=== PATIENT | male | born 1990 | race African-American/Black ===

== ENCOUNTER 2018-10-24 19:22 | Emergency (ER) | payer MEDICAID ==
[~2018-10-24] VITALS: Ht 175.3 cm; Wt 63.5 kg
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
[2018-10-25 02:34] VITALS: BP 122/80
[2018-10-25 02:54] LABS: BASOPHILS % (AUTO) 0.5 % (0.0-2.0); EOSINOPHILS % (AUTO) 2.2 % (0.0-6.0); HEMATOCRIT 39 % (39-51); HEMOGLOBIN 12.5 g/dL (13.5-17.5); LYMPHOCYTES % (AUTO) 27.9 % (20.0-44.0); MEAN CORPUSCULAR HGB CONC 32 g/dl (31.0-36.0); MEAN CORPUSCULAR VOLUME 90 fL (80-96); MONOCYTES # (AUTO) 0.5 /CMM (0.1-1.30); MONOCYTES % (AUTO) 7.8 % (2.0-12.0); NEUTROPHILS # (AUTO) 4.3 /CMM (1.8-8.9); NEUTROPHILS % (AUTO) 61.6 % (43.0-81.0); PLATELET COUNT (AUTO) 294 /CMM (150-450); RED BLOOD CELL COUNT(AUTO) 4.28 MIL/uL (4.5-6.0); WHITE BLOOD COUNT (AUTO) 7.1 K/uL (4.3-11.0)
[2018-10-25 03:06] LABS: CALCIUM, SERUM 9.3 mg/dL (8.5-10.1); CREATININE 0.9 mg/dL (0.6-1.3); POTASSIUM 4.1 mmol/L (3.5-5.1)
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
== END 2018-10-25 06:09 | disposition home or self-care (01) ==
LOC: ER 19:25
DX: S32.89XA Fracture of other parts of pelvis, initial encounter for closed fracture (principal); F10.10 Alcohol abuse, uncomplicated; Y90.9 Presence of alcohol in blood, level not specified; Z59.0 Homelessness; W18.39XA Other fall on same level, initial encounter; Y93.01 Activity, walking, marching and hiking; Y92.410 Unspecified street and highway as the place of occurrence of the external cause; Y99.8 Other external cause status
CPT/HCPCS: 36415; 71045; 72192; 73502; 80048; 85025; 93005; 99284; A4606

== ENCOUNTER 2020-11-03 20:37 | Emergency (ER) | payer MEDICAID, OTHER ==
[~2020-11-03] VITALS: Ht 175.3 cm; Wt 70.3 kg
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
[2020-11-03] MEDS ORDERED: TDAP [DIPH/PERTUSSIS/TET] 0.5 ML VIAL IM ONE ×2 (20:56→21:00)
--- NOTE | 2020-11-03 21:31 | NUR ---
pt ambulatory with steady gait.
--- NOTE | 2020-11-03 21:34 | NUR ---
Patient discharged to home in stable condition. Written and verbal after care instructions given. Patient verbalizes understanding of instruction. Pt left without signing paperwork.
[2020-11-03 21:35] VITALS: BP 121/72
== END 2020-11-03 21:36 | disposition home or self-care (01) ==
LOC: ER 20:40
DX: S51.811A Laceration without foreign body of right forearm, initial encounter (principal); S00.03XA Contusion of scalp, initial encounter; S09.8XXA Other specified injuries of head, initial encounter; R51.9 Headache, unspecified; F17.210 Nicotine dependence, cigarettes, uncomplicated; F10.10 Alcohol abuse, uncomplicated; F17.200 Nicotine dependence, unspecified, uncomplicated; Y90.9 Presence of alcohol in blood, level not specified; Z59.0 Homelessness; Y04.8XXA Assault by other bodily force, initial encounter; Y93.89 Activity, other specified; Y92.89 Other specified places as the place of occurrence of the external cause; Y99.8 Other external cause status
CPT/HCPCS: 70450-TC; 90715